=== PATIENT | male | born 1945 | race Caucasian/White ===

== ENCOUNTER 2018-12-18 20:26 | Inpatient (IN) ==
--- NOTE | 2018-12-18 21:32 | Diag Imaging Result Doc PS360 ---
EXAM: CHEST-2 VIEWS INDICATION: hx aspiration pneumonia fever TECHNIQUE: 2 views COMPARISON: 04/02/2018 FINDINGS: There is evidence of prior granulomatous disease, stable. There is stable fibrosis at the right lung base. There is a small opacity at the left lower lung zone that probably also represents fibrosis. However, focal consolidation is possible here. The remainder of the lungs appear to be clear. There is no discrete pleural fluid collection or pneumothorax. The cardiomediastinal silhouette and central vasculature are grossly unremarkable. IMPRESSION: Stable right basilar fibrosis and questionable small developing infiltrate at the left lower lung zone. Electronically signed by Jm Wilcox 12/18/2018 9:30 PM
[2018-12-18 22:32] LABS: BASO# 0.02 X1000 (0.0-0.2); BASO% 0.1 % (0.0-0.8); EOS# 0.21 X1000 (0.0-0.7); EOS% 1.3 % (0.0-10.0); HEMATOCRIT 37.8 % (42.0-52.0); HEMOGLOBIN 12.3 g/dL (14.0-18.0); IMM GRAN# 0.03 X1000 (0.0-0.04); IMM GRAN% 0.2 % (0.0-0.5); LYMPH# 0.57 X1000 (1.2-3.4); LYMPH% 3.6 % (20.5-51.1); MCH 29.4 PG (27-31); MCHC 32.5 g/dL (33-37); MCV 90.4 FL (81-99); MONO# 1.52 X1000 (0.11-0.59); MONO% 9.5 % (1.7-9.3); MPV 9.5 FL (7.4-10.4); NEUT# 13.65 X1000 (1.4-6.5); NEUT% 85.3 % (42.2-75.2); PLT 286 X1000 (130-400); RBC 4.18 XMIL (4.7-6.1); RDW 12.8 % (11.5-14.5)
[2018-12-18] MEDS ORDERED: ZOSYN 3.375 GM in NS 50 ML IV ONE (22:45)
[2018-12-18] MEDS ORDERED: NS 1,000 ML IV ONE (23:01)
[2018-12-18 23:02] LABS: AGAP 12; ALBUMIN 3.5 g/dL (3.5-5.0); ALKALINE PHOSPHATASE 113 U/L (32-122); BUN 19 mg/dL (8-22); CALCIUM 9.3 mg/dL (8.8-10.2); CHLORIDE 100 mmol/L (98-107); COSMO 275; CREATININE 0.9 mg/dL (0.7-1.2); ESTIMATED GFR > 60; GLUCOSE 107 mg/dL (70-104); GOT 22 U/L (10-34); GPT 18 U/L (10-44); POTASSIUM 4.2 mmol/L (3.5-5.1); SODIUM 136 mmol/L (136-145); TCO2 24 mmol/L (25-35); TOTAL PROTEIN 6.8 g/dL (6.3-8.3)
[2018-12-18 23:13] LABS: INFLUENZA A NEGATIVE (NEGATIVE); INFLUENZA B NEGATIVE (NEGATIVE)
[2018-12-18 23:22] LABS: BILIRUBIN URINE NEGATIVE (NEGATIVE); BLOOD URINE NEGATIVE (NEGATIVE); CLARITY CLEAR (CLEAR); COLOR YELLOW; GLUCOSE URINE NEGATIVE (NEGATIVE); KETONE URINE NEGATIVE (NEGATIVE); LEUKOCYTES URINE NEGATIVE (NEGATIVE); NITRITE URINE NEGATIVE (NEGATIVE); PROTEIN URINE TRACE mg/dL (NEGATIVE); UROBILINOGEN URINE NORMAL
[2018-12-18 23:23] LABS: URINE BACTERIA 3+ /HFP; URINE EPITHELIAL CELLS <10 /HPF (<10); URINE RBC <10 /HPF (<10); URINE SOURCE CLEAN CATCH; URINE WBC <10 /HPF (<10)
--- NOTE | 2018-12-18 23:58 | PROVIDER DOCUMENTATION ---
This chart was entered by Cara Brink Scribe, acting as scribe for Chris Astorga MD. HPI-General Adult - General Chief Complaint: General Adult Stated Complaint: PNEUMONIA SX Time Seen by Provider: 12/18/18 21:46 Source: patient, family Allergies/Adverse Reactions: Patient Allergies Allergy/AdvReac Type Severity Reaction Status Date / Time hydrocodone Allergy ITCHING Verified 04/02/18 20:44 Home Medications: Home Medication List Medication Instructions Recorded Confirmed Last Taken Type Levothyroxine [Synthroid] 150 microgm PO DAILY 04/03/18 12/18/18 04/02/18 History Albuterol 2.5MG/Ipratrop 0.5MG 3 ml INH Q4H PRN PRN #25 neb 04/04/18 Unknown Rx [Duoneb (A & A)] CephALEXIN [Keflex] 1 tab PO TID 12/18/18 12/18/18 Unknown History Clopidogrel Bisulfate [Clopidogrel] 1 tab PO DAILY 12/18/18 12/18/18 Unknown History ROSUVAstatin [Crestor] 20 mg PO DAILY 12/18/18 12/18/18 Unknown History - History of Present Illness -Gen Adult Nature of Presenting Problems: Pt is 73/m presenting to ED w/ fever and chills that started today. pt has hx of throat cancer and has aspirated a few times. Pt also had sinus surgery last Saturday. Location of Pain/Injury: reports: other (pneumonia symptoms) Pain Radiation: reports: no radiation Quality of Pain: reports: none Severity: reports: mild Onset/Duration: reports: this morning Timing: reports: still present Context/Activities at Onset: reports: none Modifying Factors: improves with: nothing Associated Symptoms: reports: fever/chills. denies: cough, diarrhea, nausea, vomiting Similar Symptoms Previously?: No Recently seen or treated by another doctor?: No Review of Systems - Adult - REVIEW OF SYSTEMS - ADULT Constitutional: reports: chills, fever Eyes: reports: no symptoms reported Ears, Nose, Mouth & Throat: reports: no symptoms reported Cardiovascular: reports: no symptoms reported. denies: chest pain, edema Respiratory: denies: cough, shortness of breath, wheezing Gastrointestinal: reports: no symptoms reported. denies: abdominal pain Genitourinary: reports: no symptoms reported Musculoskeletal: reports: no symptoms reported Integumentary: reports: no symptoms reported Neurological: reports: no symptoms reported Psychiatric: reports: no symptoms reported Endocrine: reports: no symptoms reported, excessive sweating Allergic/Immunologic: reports: no symptoms reported All Other Systems: Reviewed and Negative Past History - Adult - PAST MEDICAL HISTORY-ADULT Review of Records: reports: Old Records Reviewed, Nursing Assessment Review, Medications Reviewed, Social history reviewed & non-contributory. Major Childhood Illnesses: reports: denies history Cardiovascular: reports: denies history Respiratory: reports: denies history Gastrointestinal: reports: cancer Obstetrical/Gynecological: reports: denies history Genitourinary: reports: denies history Musculoskeletal: reports: denies history Neurological: reports: denies history Endocrine/Immune: reports: denies history Other Conditions: reports: denies history - PRIOR SURGERIES/PROCEDURES Surgical/Procedure History: reports: tonsillectomy, hernia repair, other ( throat cancer,radiacal lymph,chemo,rad) - IMMUNIZATION STATUS Childhood Immunizations: See Nurse Assessment Flu Vaccine: See Nurse Assessment - FAMILY HISTORY Family History: reviewed, not pertinent - SOCIAL HISTORY Smoking: denies, non-smoker Substance Use: none/never Alcohol Use Frequency: never Living Situation: family Physical Exam-General - PHYSICAL EXAM-ADULT Initial Vital Signs Reviewed: Yes - CONSTITUTIONAL General Appearance: appears well, alert, no apparent distress, other (Pt has very hoarse voice) - EYES Eyes: PERRL/EOMI - HEAD, EARS, NOSE, MOUTH & THROAT HENMT: normocephalic/atraumatic, moist mucous membranes, normal ENT inspection, TMs normal, pharynx normal - NECK Neck: non-tender, full range of motion, supple, normal inspection - RESPIRATORY Respiratory: chest non-tender, lungs clear, normal breath sounds, no pleuratic chest pain, no respiratory distress, no accessory muscle use - CARDIOVASCULAR Cardiovascular: normal peripheral pulses, regular rate, rhythm, no edema, no gallop, no JVD, no murmur - GASTROINTESTINAL (ABDOMEN) Abdominal Exam: normal bowel sounds, non tender, soft - LYMPHATIC Lymphatic: no adenopathy - MUSCULOSKELETAL Back Exam: normal inspection, no CVA tenderness, no vertebral tenderness Extremity: normal range of motion, non-tender, normal gait - SKIN Integumentary: normal color, normal turgor, warm/dry - NEUROLOGIC Neurologic: grossly normal - PSYCHIATRIC Psych/Mental Status: normal mood/affect, normal thought content, normal thought process, oriented x 3 Progress - PLAN OF CARE/RESULTS Progress/Plan/Lab Results: Vital Signs - 8 hr 12/18/18 20:30 Temperature 98.2 F Pulse Rate 72 Respiratory Rate 18 Blood Pressure 112/62 O2 Sat by Pulse Oximetry 100 Orders Category Date Time Status CHEST-2 VIEWS [RAD] Stat Exams 12/18/18 20:37 Completed BLOOD CULTURE [BLDCUL] Stat Lab 12/18/18 21:46 Uncollected CBC WITH ELECTRONIC DIFF [HEME] Stat Lab 12/18/18 21:46 Uncollected COMPREHENSIVE METABOLIC PANEL [CHEM] Stat Lab 12/18/18 21:46 Uncollected UA [URINALYSIS] [URINALYSIS] Stat Lab 12/18/18 21:51 Uncollected Result Diagrams: 12/18/18 22:00 12/18/18 22:00 - XRAY 1 XRAY: Bilateral XRAY Study: Chest Impression: Abnormal (FINDINGS: There is evidence of prior granulomatous disease , stable. There is stable fibrosis at the right lung base. There is a small opacity at the left lower lung zone that probably also represents fibrosis. However, focal consolidation is possible here. The remainder of the lungs appear to be clear. There is no discrete pleural fluid collection or pneumothorax. The cardiomediastinal silhouette and central vasculature are grossly unremarkable. IMPRESSION: Stable right basilar fibrosis and questionable small developing infiltrate at the left lower lung zone. Electronically signed by Jm Wilcox 12/18/2018 9:30 PM 12/18/18 2130) Comparison with other Films: changes noted - CONSULTS/PCP/HOSPITALIST Notification #1 *Consult/PCP/Hospitalist*: Dr Monzon Time Discussed: 23:00 Consult Disposition: Admit (asked for zosyn, nebs, and oxygen) Departure - Departure Date of Disposition Decision: 12/18/18 Time of Disposition Decision: 23:57 DIAGNOSIS: Pneumonia Disposition: ADMITTED INPATIENT 09 Certified Medical Emergency: Emergent Condition: Fair Referrals and Follow-Ups: None,PCP [Primary Care Provider] - - Critical Care Note This patient required my direct & personal management of CC.: No Attestation - Physician/ JOSELINE Attestation Patient care was provided by Advanced Practice Provider:: No The physician spent face to face time with patient:: Yes Advanced Practice Provider documentation review:: Supervising physician onsite and consulted in the evaluation and care of this patient. The physician did have a face to face encounter with the patient. This chart was documented by the indicated scribe, (Cara Brink, [place]) and accurately reflects the services I performed and decisions made by me, Chris Astorga MD, as attested by the provider's signature.
[2018-12-19] MEDS ORDERED: NS 1,000 ML IV ONE (00:03)
[2018-12-19 02:30] LABS: INR 1.1; PROTIME 14.8 Seconds (11.0-16.0); PTT 30.6 Seconds (22.3-41.8)
[2018-12-19 02:36] LABS: AGAP 9; ALBUMIN 2.7 g/dL (3.5-5.0); ALKALINE PHOSPHATASE 88 U/L (32-122); BUN 21 mg/dL (8-22); CALCIUM 8.3 mg/dL (8.8-10.2); CHLORIDE 107 mmol/L (98-107); CK PROFILE 87 U/L (24-204); COSMO 278; CREATININE 0.9 mg/dL (0.7-1.2); ESTIMATED GFR > 60; GLUCOSE 113 mg/dL (70-104); GOT 17 U/L (10-34); GPT 15 U/L (10-44); POTASSIUM 4.1 mmol/L (3.5-5.1); SODIUM 137 mmol/L (136-145); TCO2 22 mmol/L (25-35); TOTAL PROTEIN 5.5 g/dL (6.3-8.3)
[2018-12-19] MEDS: ZOSYN 3.375 GM in NS 50 ML IV SCH ×4 (04:07→22:19)
[2018-12-19] MEDS: DUONEB (A & A) INH SCH ×5 (07:53→22:59)
[2018-12-19] MEDS: NS 1,000 ML IV SCH ×2 (11:06→21:09)
--- NOTE | 2018-12-19 11:13 | HISTORY AND PHYSICAL ---
CHIEF COMPLAINT: Fever. HISTORY OF PRESENT ILLNESS: This is a 73-year-old gentleman with a prior history of throat cancer, with frequent aspiration, who presents to the emergency room complaining of fever and chills that started earlier in the day. He states he has had some sinus difficulty, and he had been placed on Keflex 6 days prior, and he feels that was getting better, although he did develop a fever. He denies any syncope, dizziness, chest pain, a productive cough. PAST MEDICAL HISTORY: 1. Hypothyroidism. 2. Frequent aspiration pneumonia. 3. Bilateral carotid disease, on Plavix. 4. History of throat cancer 16 years ago. He underwent radiation and chemotherapy. PAST SURGICAL HISTORY: 1. Appendectomy. 2. Left chest port placement and removal. 3. Tonsillectomy. 4. Radical lymph node removal secondary to throat cancer. SOCIAL HISTORY: He lives at home with his . He denies any alcohol, tobacco, or illicit drug use. ALLERGIES: Hydrocodone causes itching. HOME MEDICATIONS: A list was obtained by the nursing staff, and once reviewed, we will restart it as appropriate. REVIEW OF SYSTEMS: Discussed with the patient, with pertinent positives stated in the HPI. He denied any syncope, dizziness, chest pain, palpitations, any night sweats, a productive cough, any shortness of breath, PND, orthopnea, any nausea, vomiting, diarrhea, constipation, black or bloody vomitus or stool, for hematuria, dysuria, frequency, urgency. PHYSICAL EXAMINATION: GENERAL: This is a 73-year-old gentleman who presented to the emergency room complaining of fever and chills. He was sitting up in the bed with no distress. VITAL SIGNS: Blood pressure is 90/54 with heart rate of 84, respirations are 20, temperature 97.4, with room air saturations 98% to 100%. HEENT: Pupils are equal, round and reactive to light. EOMs are intact. Sclerae anicteric. Normocephalic and atraumatic. Mucous membranes are dry. NECK: Supple. Trachea midline. CARDIOVASCULAR: Regular rate and rhythm. S1 and S2 are appreciated. PULMONARY: Breath sounds are clear with no increased work of breathing noted. GASTROINTESTINAL: Abdomen is soft, nontender and nondistended, with bowel sounds in all 4 quadrants. NEUROLOGICAL: He is alert and oriented x3. SKIN: Warm and dry. DIAGNOSTIC DATA: WBC is 16, hemoglobin 12.3, hematocrit 37.8, platelets 286. Sodium is 136, potassium 4.2, BUN is 19, creatinine 0.9, glucose 107. Troponins are negative. Urine is essentially negative. Flu A and B are negative. Chest x-ray revealed questionable small developing infiltrate in the left lower lung. Blood cultures are pending. ASSESSMENT AND PLAN: 1. Left lower lobe pneumonia. Blood cultures were drawn in the emergency room. The patient has been started on Zosyn which we will continue given his history of aspiration, and any further antibiotics will be culture driven. 2. Chronic obstructive pulmonary disease. He will be placed on DuoNebs q.4 hours when awake. We will give supplemental oxygen as needed. We will review his home medications and if appropriate restart. 3. Leukocytosis secondary to number 1. As stated, we will continue antibiotics. 4. Hypotension. Most likely due to intravascular volume depletion. We will hold any antihypertensives that he may be on, and we will give some gentle hydration and monitor. 5. Hypothyroidism. We will continue his levothyroxine. 6. History of throat cancer with subsequent frequent aspiration. The patient states that he has not been placed on a special diet. He does drink 2 cans of Ensure with meals. We will continue this and monitor. 7. Bilateral carotid disease. The patient is on Plavix for this. He is very adamant about continuing, and of course we will continue. Further treatments pending hospital course. Dictated by CLAUDIA Quintanilla for Panchito Villasenor MD This chart was documented by, CLAUDIA Quintanilla and accurately reflects the services performed, treatment plan and medical decisions as attested by the providers signature Panchito Villasenor MD. cc: CLAUDIA Quintanilla MD
--- NOTE | 2018-12-19 14:36 | HISTORY AND PHYSICAL ---
ADDENDUM: I saw the patient [id number] and I fully agree with the assessment and plan of my nurse practitioner, Tomasa Lamb. This is a 73-year-old gentleman who has a history of throat cancer with recurrent aspiration pneumonia. He was admitted to the hospital after he was found to have left lower lobe pneumonia. He also has chronic obstructive pulmonary disease and hypothyroidism. We are going to keep him here at the hospital and treat his pneumonia with IV Zosyn. He will be continued with his routine home medications and we will also give him IV fluids because of his borderline low blood pressure readings. Further recommendations will be given as per hospital course. cc: Panchito Villasenor MD
[2018-12-19] MEDS: CRESTOR PO SCH (20:26)
[2018-12-19] MEDS: SINGULAIR PO SCH (20:26)
[2018-12-19] MEDS ORDERED: NASAREL NAS SCH (22:45)
[2018-12-20] MEDS: ZOSYN 3.375 GM in NS 50 ML IV SCH ×4 (04:07→22:53)
[2018-12-20] MEDS: SYNTHROID PO SCH (06:06)
[2018-12-20 06:13] LABS: HEMATOCRIT 30.3 % (42.0-52.0); HEMOGLOBIN 9.3 g/dL (14.0-18.0); MCH 28.3 PG (27-31); MCHC 30.7 g/dL (33-37); MCV 92.1 FL (81-99); MPV 9.7 FL (7.4-10.4); RBC 3.29 XMIL (4.7-6.1); RDW 13.3 % (11.5-14.5); WBC 7.33 X1000 (4.8-10.8)
[2018-12-20 06:32] LABS: AGAP 10; BUN 15 mg/dL (8-22); CALCIUM 8.6 mg/dL (8.8-10.2); CHLORIDE 106 mmol/L (98-107); COSMO 277; CREATININE 0.7 mg/dL (0.7-1.2); ESTIMATED GFR > 60; GLUCOSE 104 mg/dL (70-104); POTASSIUM 3.7 mmol/L (3.5-5.1); SODIUM 138 mmol/L (136-145); TCO2 23 mmol/L (25-35)
[2018-12-20] MEDS: DUONEB (A & A) INH SCH ×5 (07:48→22:55)
[2018-12-20] MEDS: PLAVIX PO SCH (11:13)
[2018-12-20] MEDS: FLONASE NAS SCH ×2 (11:14→21:21)
--- NOTE | 2018-12-20 11:37 | PROGRESS NOTE ---
DATE: 12/20/2018 SUBJECTIVE: The patient denies having any acute complaints this morning and feels real well. OBJECTIVE: Vital Signs: Temperature 97.8 degrees, pulse 100 per minute, respiratory rate 16 per minute, blood pressure 119/88, pulse oximetry 100% on room air. In general, the patient is alert and oriented x3. He does not appear to be in any acute distress. Cardiovascular System: First and second heart sounds are audible without any murmurs or gallops. Respiratory System: Bilateral lung air entry is moderately decreased with a few scattered rales present on auscultation. Gastrointestinal: Abdomen is soft and nondistended. Normal bowel sounds are present. DIAGNOSTIC DATA: CBC showed hemoglobin of 9.3 and hematocrit 30.3. In comparison, his hemoglobin and hematocrit were 12.3 and 37.8 two days ago. Basic metabolic panel done this morning is nondiagnostic. IMPRESSION: 1. Left lower lobe pneumonia. 2. History of recurrent aspiration. 3. Chronic obstructive pulmonary disease. 4. Dyslipidemia. 5. Anemia. 6. Dyslipidemia with history of carotid atherosclerosis. PLAN: The patient will be kept here on Med/Surg floor with Zosyn intravenously for his possible aspiration pneumonia. He will be kept on bronchodilators and will also continue with the simvastatin 20 mg daily for now. He has a history of hypothyroidism for which he will continue with levothyroxine 150 mcg daily. I am going to continue him on IV fluid and obtain stool for Hemoccult to rule out any GI bleeding. We are going to continue with clopidogrel 75 mg daily for now, but will be held if we document any further drop in hemoglobin and hematocrit tomorrow. Further recommendations will be given as per hospital course. cc: Panchito Villasenor MD
[2018-12-20] MEDS: NS 1,000 ML IV SCH (20:38)
[2018-12-20 21:13] LABS: OCCULT BLOOD 1 NEGATIVE (NEGATIVE)
[2018-12-20] MEDS: SINGULAIR PO SCH ×2 (21:22→21:24)
[2018-12-20] MEDS: CRESTOR PO SCH (21:22)
[2018-12-20] MEDS ORDERED: ASPIRIN PO ONE (22:57)
[2018-12-21] MEDS ORDERED: TYLENOL PO PRN
[2018-12-21 00:24] LABS: INR 1.07; PROTIME 14.5 Seconds (11.0-16.0)
[2018-12-21 00:25] LABS: PTT 31.2 Seconds (22.3-41.8)
[2018-12-21 00:29] LABS: AGAP 10; ALBUMIN 3.3 g/dL (3.5-5.0); ALKALINE PHOSPHATASE 90 U/L (32-122); BUN 14 mg/dL (8-22); CALCIUM 9.2 mg/dL (8.8-10.2); CHLORIDE 104 mmol/L (98-107); COSMO 279; CREATININE 0.7 mg/dL (0.7-1.2); ESTIMATED GFR > 60; GLUCOSE 117 mg/dL (70-104); GOT 23 U/L (10-34); GPT 16 U/L (10-44); POTASSIUM 4.2 mmol/L (3.5-5.1); SODIUM 139 mmol/L (136-145); TCO2 25 mmol/L (25-35); TOTAL PROTEIN 5.8 g/dL (6.3-8.3)
[2018-12-21 00:44] LABS: CK PROFILE 180 U/L (24-204)
[2018-12-21 02:16] LABS: BASO# 0.03 X1000 (0.0-0.2); BASO% 0.2 % (0.0-0.8); EOS# 0.31 X1000 (0.0-0.7); EOS% 2.1 % (0.0-10.0); HEMATOCRIT 32.8 % (42.0-52.0); HEMOGLOBIN 10.4 g/dL (14.0-18.0); IMM GRAN# 0.04 X1000 (0.0-0.04); IMM GRAN% 0.3 % (0.0-0.5); LYMPH# 0.68 X1000 (1.2-3.4); LYMPH% 4.5 % (20.5-51.1); MCH 29.3 PG (27-31); MCHC 31.7 g/dL (33-37); MCV 92.4 FL (81-99); MONO# 1.25 X1000 (0.11-0.59); MONO% 8.4 % (1.7-9.3); MPV 9.2 FL (7.4-10.4); NEUT# 12.66 X1000 (1.4-6.5); NEUT% 84.5 % (42.2-75.2); PLT 268 X1000 (130-400); RBC 3.55 XMIL (4.7-6.1); RDW 13.2 % (11.5-14.5); WBC 14.97 X1000 (4.8-10.8)
[2018-12-21 03:10] LABS: BASO# 0.02 X1000 (0.0-0.2); BASO% 0.2 % (0.0-0.8); EOS# 0.15 X1000 (0.0-0.7); EOS% 1.2 % (0.0-10.0); HEMATOCRIT 28.9 % (42.0-52.0); HEMOGLOBIN 9.2 g/dL (14.0-18.0); IMM GRAN# 0.03 X1000 (0.0-0.04); IMM GRAN% 0.2 % (0.0-0.5); LYMPH# 0.66 X1000 (1.2-3.4); LYMPH% 5.4 % (20.5-51.1); MCH 29.3 PG (27-31); MCHC 31.8 g/dL (33-37); MONO# 1.19 X1000 (0.11-0.59); MONO% 9.7 % (1.7-9.3); MPV 9.3 FL (7.4-10.4); NEUT% 83.3 % (42.2-75.2); PLT 232 X1000 (130-400); RBC 3.14 XMIL (4.7-6.1); RDW 13.1 % (11.5-14.5); WBC 12.25 X1000 (4.8-10.8)
[2018-12-21 03:24] LABS: AGAP 9; BUN 15 mg/dL (8-22); CHLORIDE 109 mmol/L (98-107); COSMO 283; CREATININE 0.8 mg/dL (0.7-1.2); ESTIMATED GFR > 60; GLUCOSE 113 mg/dL (70-104); MAGNESIUM 1.6 mg/dL (1.5-2.7); POTASSIUM 4.1 mmol/L (3.5-5.1); SODIUM 141 mmol/L (136-145); TCO2 23 mmol/L (25-35)
[2018-12-21] MEDS: ZOSYN 3.375 GM in NS 50 ML IV SCH ×2 (04:17→10:47)
[2018-12-21] MEDS: SYNTHROID PO SCH (06:11)
[2018-12-21] MEDS: DUONEB (A & A) INH SCH ×2 (08:04→11:08)
--- NOTE | 2018-12-21 08:26 | Diag Imaging Result Doc PS360 ---
EXAM: CHEST-PORTABLE - 12/21/2018 HISTORY: Pneumonia TECHNIQUE: Portable chest COMPARISON: 12/18/2018 FINDINGS: Heart size is normal. There has been apparent decrease in infiltrate at the left lingula. There is scarring at the lateral right base. There is no substantial pleural effusion or pneumothorax identified. IMPRESSION: Apparent decrease in infiltrate at left lingula. Electronically signed by Mika Lee 12/21/2018 8:24 AM
[2018-12-21] MEDS: FLONASE NAS SCH (08:28)
[2018-12-21] MEDS: PLAVIX PO SCH (10:00)
[2018-12-21 10:06] LABS: IRON SATURATION 9 %; TIBC 245 ug/dL; TOTAL IRON 21 ug/dL (53-167); UNBOUND IRON 224 ug/dL (112-346)
[2018-12-21] MEDS: NS 1,000 ML IV SCH (10:48)
[2018-12-21 11:58] VITALS: BP 125/71
--- NOTE | 2018-12-21 21:35 | DISCHARGE SUMMARY ---
ADMISSION DATE: 12/19/2018 DISCHARGE DATE: 12/21/2018 DISCHARGE DIAGNOSIS: 1. Recurrent aspiration pneumonia. 2. Chronic obstructive pulmonary disease. 3. Dyslipidemia. 4. Carotid atherosclerosis. 5. Anemia. 6. Hypothyroidism. HOSPITAL COURSE: This is a 73-year-old gentleman who has a prior history of throat cancer with frequent aspiration pneumonias, presented to the emergency department with fever and chills, which started a day earlier. He was diagnosed as having pneumonia and therefore was admitted to the hospital for further care. He received IV Zosyn and was also treated with nebulization treatments. His condition gradually improved. He has been having anemia which he attributes to a recent procedure on his throat. He states that he still has some oozing blood from his throat and he needs to follow up with his ENT doctor with whom he has already scheduled an appointment later this week. He really wants to follow up that as outpatient and therefore wants to go home. His pneumonia appears to have improved on repeat chest x-ray. His overall condition has been stable and therefore, we are going to let him go home today. DISCHARGE MEDICATIONS: 1. Cefdinir 300 mg orally twice daily for 7 days. 2. Clindamycin 300 mg orally 3 times a day for 7 days. 3. Albuterol and Atrovent nebulization treatments q.4 hours as needed as directed. 4. Rosuvastatin 20 mg orally once daily at bedtime. 5. Montelukast 10 mg orally once daily. 6. Levothyroxine 150 mcg orally once daily. 7. Clopidogrel 75 mg orally once daily. FOLLOWUP: He will follow up with his PCP and ENT within a week. CONDITION: Stable. DISPOSITION: Home. Patient is advised to have a repeat CBC done at his PCP or ENT's office. cc: Panchito Villasenor MD
== END 2018-12-21 14:47 | disposition home or self-care (01) | DRG 871 ==
LOC: P.ED 20:26 → P.MEDSURG 12-19 01:10 → SUATTDRO 12-19 01:13
PROVIDERS: ATTEND Internal Medicine
CPT/HCPCS: 71010; 71020; 71045; 71046; 80048; 80053; 81001; 82270; 82550; 82607; 82728; 82746; 83540; 83550; 83605; 83615; 83735; 84153; 84484; 85025; 85027; 85610; 85730; 87040; 87070; 87077; 87088; 87186; 87205; 87275; 87276; 87804; 93005; 94640; 94761; 96365; 96366; 99285; A9270; J2543; J7030